=== PATIENT | female | born 1995 | race Caucasian/White ===

== ENCOUNTER 2019-04-27 10:48 | Emergency (ER) | payer MEDICAID ==
--- NOTE | 2019-04-27 12:03 | Emergency Department Record ---
History of Present Illness - General Chief Complaint: Ankle/Foot Injury Stated Complaint: RT ANKLE INJURY Time Seen by Provider: 04/27/19 12:02 Source: Patient Mode of Arrival: Ambulatory Limitations: No limitations - History of Present Illness Initial Comments: The patient is here due to R ankle pain. She was walking 5 hours ago and twisted the ankle. She has had pain with walking since. The patient denies any other injuries. MD Complaint: Ankle injury Onset/Timin -: Hour(s) Improves With: Nothing Worsens With: Weight bearing Context: Fall, Walking - Related Data Home Medications Medication Instructions Recorded Confirmed Last Taken Medroxyprogesterone Acetate [Depo 150 mg IM ASDIR 04/27/19 04/27/19 Unknown Provera] Allergies Allergy/AdvReac Type Severity Reaction Status Date / Time No Known Drug Allergies Allergy Verified 04/27/19 11:55 Travel Screening - Travel/Exposure Within Last 30 Days Have you traveled within the last 30 days?: No Review of Systems Constitutional: Denies: Chills, Fever Past Medical History - SOCIAL HISTORY Smoking Status: Current every day smoker Alcohol Use: None Drug Use: None - RESPIRATORY Hx Respiratory Disorders: No - CARDIOVASCULAR Hx Cardio Disorders: No - NEURO Hx Neuro Disorders: No - GI Hx GI Disorders: No - Hx Genitourinary Disorders: No - ENDOCRINE Hx Endocrine Disorders: No - MUSCULOSKELETAL Hx Musculoskeletal Disorders: No - PSYCH Hx Psych Problems: Yes Comment:: adhd - HEMATOLOGY/ONCOLOGY Hx Hematology/Oncology Disorders: No Family Medical History Any Significant Family History?: No Physical Exam - General General Appearance: Alert, Oriented x3, Cooperative, No acute distress - Head Head exam: Atraumatic, Normocephalic - Eye Eye exam: Normal appearance - Extremities Extremities exam: Normal capillary refill, Tenderness, Other (The R ankle is stable and NVI.). negative: Normal inspection (There is swelling to the R lateral malleolar area with tenderness.), Full ROM, Joint swelling Image of Full Body: 1 - Area of pain and swelling. Course Vital Signs 04/27/19 11:52 Temperature 97.4 F L Pulse Rate 87 Respiratory 20 Rate Blood Pressure 122/64 Pulse Ox 99 - Reevaluation(s) Reevaluation #1: I did discuss the neg xrays with the patient and the need for wearing a brace for 3 days and to be off work. The patient declined crutches. 04/27/19 12:31 Medical Decision Making - Data Complexity MDM Data: X-Ray Ordered and/or Reviewed - Radiology Data Radiology results: Report reviewed (R ankle: Neg per Rad.) Disposition Disposition: Discharge Clinical Impression: Right ankle sprain Qualifiers: Encounter type: initial encounter Involved ligament of ankle: unspecified ligament Qualified Code(s): S93.401A - Sprain of unspecified ligament of right ankle, initial encounter Disposition: Home, Self-Care Condition: (2) Stable Instructions: Ankle Sprain (ED) Additional Instructions: Ice and elevate the R ankle for 3 days and limit your walking. Wear the brace for 3-5 days and please see your doctor if not better next week. Forms: Patient Portal Access Time of Disposition: 12:33 Quality - Quality Measures Quality Measures: N/A - Blood Pressure Screening View Details: Yes Does Patient Have Any of the Following: No Blood Pressure Classification: Pre-Hypertensive BP Reading Systolic Measurement: 122 Diastolic Measurement: 64 Screening for High Blood Pressure: < Pre-Hypertensive BP, F/U Documented > [[id number]] Pre-Hypertensive Follow-up Interventions: Referral to alternative/primary care provider.
[2019-04-27] MEDS ORDERED: ACETAMINOPHEN 325 MG TAB PO ONE (12:04)
--- NOTE | 2019-04-29 21:13 | RADIOLOGY REPORT ---
EXAM: ANKLE RIGHT 3 VIEWS HISTORY: PATIENT FELL THIS MORNING AND TWISTED ANKLE. PAIN ON THE LATERAL SIDE. TECHNIQUE: Three views right ankle. COMPARISON: None. FINDINGS: The tibia and fibula appear intact. The talus and calcaneus appear intact. Ankle mortise joint spacing is normal. Base of the fifth metatarsal bone is intact. IMPRESSION: NO SIGN OF ACUTE BONE PATHOLOGY OF THE RIGHT ANKLE. JOB NUMBER: [id number] [facility]
== END 2019-04-27 12:55 | disposition home or self-care (01) ==
LOC: ER 10:48
DX: S93.401A Sprain of unspecified ligament of right ankle, initial encounter (principal); F17.210 Nicotine dependence, cigarettes, uncomplicated; X50.1XXA Overexertion from prolonged static or awkward postures, initial encounter; Y93.01 Activity, walking, marching and hiking; Y92.85 Railroad track as the place of occurrence of the external cause
CPT/HCPCS: 99283